=== PATIENT | female | born 1970 | race Caucasian/White ===

== ENCOUNTER 2018-04-15 16:54 | Emergency (ER) | payer MEDICARE ==
[~2018-04-15] VITALS: Ht 170.2 cm; Wt 56.8 kg
[2018-04-15 16:57] VITALS: Ht 170.2 cm; Wt 56.8 kg
[2018-04-15] MEDS ORDERED: FEMARA2.5 MG PO (16:59)
[2018-04-15] MEDS ORDERED: LAMICTAL200 MG PO (16:59)
[2018-04-15 17:38] LABS: BASOPHILS 0.3 % (0-2); EOSINOPHILS 0.8 % (0-7); HEMATOCRIT 35.5 % (36.0-48.0); HEMOGLOBIN 11.7 g/dL (12-16); IMMATURE GRANULOCYTES 0.3 % (0-5); LYMPHOCYTES 34.3 % (15-50); MCH 30.5 pg (26.0-34.0); MCV 92.7 fL (80.0-100.0); MEAN PLATELET VOLUME 10.2 fL (7.4-10.4); MONOCYTES 6.3 % (2-11); PLATELET COUNT 188 10x3/uL (130-400); RBC 3.83 10x6/uL (4.00-5.40); RDW 12.2 % (11.5-14.5); WBC 5.9 10x3/uL (4.8-10.8)
[2018-04-15 17:53] LABS: ALBUMIN 3.8 g/dL (3.4-5.0); ANION GAP 9.6 mmol/L (8-16); BILIRUBIN - TOTAL 0.28 mg/dL (0.2-1.3); CALCIUM 8.9 mg/dL (8.5-10.1); CARBON DIOXIDE 29.4 mmol/L (21.0-32.0); CREATININE - SERUM 0.9 mg/dL (0.6-1.3); PROTEIN - SERUM 7.1 g/dL (6.4-8.2)
[2018-04-15] MEDS ORDERED: EC-NAPROSYN500 MG PO (18:17)
[2018-04-15] MEDS ORDERED: CYCLOBENZAPRINE10 MG PO (18:17)
[2018-04-16 02:59] VITALS: BP 113/77
== END 2018-04-15 18:53 | disposition home or self-care (01) ==
LOC: D.ER 16:54
PROVIDERS: Family Medicine
DX: M54.2 Cervicalgia (principal); V43.62XA Car passenger injured in collision with other type car in traffic accident, initial encounter; Y93.89 Activity, other specified; Y92.410 Unspecified street and highway as the place of occurrence of the external cause; M62.830 Muscle spasm of back; G40.909 Epilepsy, unspecified, not intractable, without status epilepticus